=== PATIENT | male | born 1940 | race Caucasian/White ===

== ENCOUNTER 2024-01-28 22:30 | Observation (INO) | payer MEDICARE, SELFPAY ==
[2024-01-28] VITALS (7 sets, daily range): BP systolic 139–161; BP diastolic 67–93; PULSE 76–104; TEMP 39.3; O2SAT 93–95; BMI 31.7
--- NOTE | 2024-01-28 22:48 | ECG_ITS ---
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
--- NOTE | 2024-01-28 22:48 | XR_ITS ---
[place] [id number] Patient Name: NA ARIAS MRN: [id number] date: 1940 Sex: M Assigned Patient Location: ED.MAIN Current Patient Location: ER Accession/Order Number: [id number] Exam Date: 01/28/2024 23:16 Report Date: 01/29/2024 00:10 At the request of: ODALIS BANEGAS Procedure: XR chest 1V EXAMINATION: XR chest 1V, , 01/28/2024 11:16 PM EDT INDICATION: SOB HISTORY: Ordering Provider Reason for Exam: SOB Technologist Note: Additional: COMPARISON: None. TECHNIQUE: Chest x-ray: One view. FINDINGS: No pneumothorax, pleural effusion or focal airspace consolidation. Heart is normal in size. Bony thorax is unremarkable. XR/XR chest 1V IMPRESSION: No acute cardiopulmonary process. Electronically authenticated by: JOSEPH OCHOA Date: 01/29/2024 00:10
--- NOTE | 2024-01-28 22:51 | ED.GENADUL1 ---
HPI HPI - General Adult General Chief complaint: Upper Respiratory Infection Stated complaint: DIFF BREATHING, COUGH, POSS COVID Time Seen by Provider: 01/28/24 22:44 Source: patient Mode of arrival: Wheelchair Limitations: no limitations History of Present Illness HPI narrative: 83-year-old male presents for cough and shortness of breath. He was noted to have a fever at triage and his symptoms began yesterday. He complains of weakness particularly with ambulation as well. He was recently on a trip to [place] and [place] on the train. No vomiting or diarrhea. Related Data Allergies Allergy/AdvReac Type Severity Reaction Status Date / Time No Known Drug Allergies Allergy Verified 01/28/24 22:38 Opioid HPI Opioid Management Most Recent Opioid Data: No Data to Display Review of Systems ROS Narrative A ten point review of systems is negative except as noted above. PFSH PFSH Social History Little interest or pleasure in doing things: not at all Feeling down, depressed, or hopeless: not at all Exam Narrative Exam Narrative: Nurses note and vital signs reviewed and patient is not hypoxic. General: The patient appears in no acute respiratory distress but he appears moderately dyspneic. Skin: Warm, dry, no pallor noted. There is no rash noted. Head: Normocephalic, atraumatic Eye: Normal conjunctiva, no drainage Ears, Nose, Mouth, and Throat: oral mucosa is moist. Nares patent. Cardiovascular: Regular Rate and Rhythm Respiratory: He coughs when he takes in deep breaths. No rales or rhonchi are noted Back: non-tender GI: Soft and nontender Musculoskeletal: The patient has no evidence of calf tenderness, no pitting edema, symmetrical pulses noted bilaterally Neurological: Awake and alert Psychiatric: Cooperative Constitutional Vital Signs, click to edit/add: Last Vital Signs Temp 98.6 F 01/29/24 00:25 Pulse 82 01/29/24 00:30 Resp 18 01/29/24 00:30 BP 134/71 01/29/24 00:30 Pulse Ox 95 01/29/24 00:30 O2 Del Method Room Air 01/29/24 00:25 Course Vital Signs Vital signs: Vital Signs Temperature 102.8 F H 01/28/24 22:38 Pulse Rate 76 01/28/24 22:38 Respiratory Rate 22 H 01/28/24 22:38 Blood Pressure 161/67 H 01/28/24 22:38 Pulse Oximetry 93 L 01/28/24 22:38 Oxygen Delivery Method Room Air 01/28/24 22:38 Temperature 98.6 F 01/29/24 00:25 Pulse Rate 82 01/29/24 00:30 Respiratory Rate 18 01/29/24 00:30 Blood Pressure 134/71 01/29/24 00:30 Pulse Oximetry 95 01/29/24 00:30 Oxygen Delivery Method Room Air 01/29/24 00:25 Medical Decision Making MDM Narrative Medical decision making narrative: His workup including chest x-ray and COVID are negative. Cultures were obtained and he was given IV Rocephin and Zithromax. Temperatures come down appropriately with Tylenol. He has generalized weakness and he will be admitted. Findings are discussed with the patient and his . Differential Diagnosis Differential Diagnosis: COVID, upper respiratory infection, pneumonia Lab Data Lab results reviewed: Yes I reviewed the patient's lab results Labs: Lab Results 01/28/24 01/28/24 Range/Units 23:00 23:45 WBC 7.1 (4.0-11.0) 10^3/uL RBC 3.49 L (4.70-6.10) 10^6/uL Hgb 10.6 L (14.0-18.0) g/dL Hct 32.7 L (42.0-54.0) % MCV 93.7 (80.0-94.0) fL MCH 30.4 (25.9-34.0) pg MCHC 32.4 (29.9-35.2) g/dL RDW 12.5 (11.0-15.0) % Plt Count 179 (150-450) 10^3/uL MPV 10.6 (9.5-13.5) fL Seg Neuts % (Manual) 87.0 H (43.0-75.0) Lymphocytes % (Manual) 7.0 L (20.5-60.0) % Monocytes % (Manual) 2.0 (1.7-12.0) % Eosinophils % (Manual) 4.0 (0.9-7.0) % Basophils % (Manual) 0.0 L (0.2-2.0) % Neutrophils # (Manual) 6.17 (1.4-6.5) 10^3/uL Lymphocytes # (Manual) 0.49 L (1.20-3.80) 10^3/uL Monocytes # (Manual) 0.14 L (0.30-0.80) 10^3/uL Eosinophils # (Manual) 0.28 (0.00-0.70) 10^3/uL Basophils # (Manual) 0.00 (0.00-0.10) 10^3/uL Sodium 133 L (136-145) mmol/L Potassium 3.8 (3.5-5.1) mmol/L Chloride 101 (98-107) mmol/L Carbon Dioxide 27.9 (21.0-32.0) mmol/L Anion Gap 7.9 BUN 15.0 (7.0-18.0) mg/dL Creatinine 1.05 (0.70-1.30) mg/dL Est GFR ( Amer) >60 (>=60) Est GFR (Non-Af Amer) >60 (>=60) BUN/Creatinine Ratio 14.3 Glucose 125 H (74-106) mg/dL Lactate 1.2 (0.4-2.0) mmol/L Calcium 8.7 (8.5-10.1) mg/dL SARS-CoV-2 Ag (CV2AG) Negative (NEGATIVE) Imaging Data Chest x-ray: Radiologist's impression: ITS Impressions Chest X-Ray 01/28/24 22:48 IMPRESSION: No acute cardiopulmonary process. Electronically authenticated by: JOSEPH OCHOA Date: 01/29/2024 00:10 ECG Data Attestation: I personally reviewed and interpreted this ECG as follows: (EKG on my interpretation shows sinus rhythm with a rate of 81) Discharge Plan Discharge Chief Complaint: Upper Respiratory Infection Clinical Impression: Generalized weakness, Fever Patient Disposition: Admitted as Observation Time of Disposition Decision: 01:24 Condition: Fair
[2024-01-28 23:15] LABS: Hematocrit 32.7 % (42.0-54.0); Hemoglobin 10.6 g/dL (14.0-18.0); Mean Corpuscular HGB Conc 32.4 g/dL (29.9-35.2); Mean Corpuscular Hemoglobin 30.4 pg (25.9-34.0); Mean Corpuscular Volume 93.7 fL (80.0-94.0); Mean Platelet Volume 10.6 fL (9.5-13.5); Platelet Count 179 10^3/uL (150-450); Red Blood Count 3.49 10^6/uL (4.70-6.10); Red Cell Distribution Width 12.5 % (11.0-15.0); White Blood Count 7.1 10^3/uL (4.0-11.0)
[2024-01-28 23:24] LABS: Anion Gap 7.9; BUN Creatinine Ratio 14.3; Calcium 8.7 mg/dL (8.5-10.1); Carbon Dioxide 27.9 mmol/L (21.0-32.0); Chloride 101 mmol/L (98-107); Estimated GFR (African America >60 (>=60); Estimated GFR (Non-African Ame >60 (>=60); Glucose 125 mg/dL (74-106); Potassium 3.8 mmol/L (3.5-5.1); Sodium 133 mmol/L (136-145)
[2024-01-28 23:33] LABS: Lactate/Lactic Acid 1.2 mmol/L (0.4-2.0)
[2024-01-28] MEDS: ACETAMINOPHEN 325 MG TABLET 650 MG PO (23:37)
[2024-01-29] VITALS (29 sets, daily range): BP systolic 120–160; BP diastolic 64–75; PULSE 66–97; TEMP 36.8–38.5; O2SAT 85–97; BMI 35.0
[2024-01-29 00:06] LABS: Eosinophils Absolute Manual 0.28 10^3/uL (0.00-0.70); Lymphocytes Absolute Manual 0.49 10^3/uL (1.20-3.80); Monocytes Absolute Manual 0.14 10^3/uL (0.30-0.80); Segmented Neut Absolute Manual 6.17 10^3/uL (1.4-6.5)
[2024-01-29 00:08] LABS: Internal Control Within Normal Limits; SARS-CoV-2 Ag NEGATIVE (NEGATIVE)
[2024-01-29] MEDS: 0.9 % SODIUM CHLORIDE 1,000 ML 75 ML IV ×2 (02:23→15:26)
[2024-01-29] MEDS: CEFTRIAXONE 1,000 MG in 0.9 % SODIUM CHLORIDE 50 ML 100 MG IV (02:24)
[2024-01-29] MEDS: AZITHROMYCIN 500 MG in 0.9 % SODIUM CHLORIDE 250 ML 250 MG IV (02:24)
[2024-01-29 06:16] LABS: Basophils Percent Auto 0.4 % (0.2-2.0); Eosinophils Absolute Auto 0.4 10^3/uL (0.0-0.7); Hematocrit 32.1 % (42.0-54.0); Hemoglobin 10.3 g/dL (14.0-18.0); Immature Granulocytes Abs Auto 0.02 10^3/uL (0.00-0.03); Immature Granulocytes Pct Auto 0.3 % (0.0-0.5); Lymphocytes Absolute Auto 0.7 10^3/uL (1.2-3.8); Lymphocytes Percent Auto 9.4 % (20.5-60.0); Mean Corpuscular HGB Conc 32.1 g/dL (29.9-35.2); Mean Corpuscular Volume 93.6 fL (80.0-94.0); Mean Platelet Volume 10.9 fL (9.5-13.5); Monocytes Absolute Auto 0.3 10^3/uL (0.3-0.8); Monocytes Percent Auto 4.6 % (1.7-12.0); Neutrophils Absolute Auto 5.6 10^3/uL (1.4-6.5); Neutrophils Percent Auto 80.3 % (43.0-75.0); Platelet Count 169 10^3/uL (150-450); Red Blood Count 3.43 10^6/uL (4.70-6.10); Red Cell Distribution Width 12.4 % (11.0-15.0)
[2024-01-29 06:29] LABS: C Reactive Protein 1.91 mg/dL (<=0.50)
[2024-01-29 06:33] LABS: Alanine Aminotransferase 20 U/L (16-63); Albumin Globulin Ratio 0.9; Alkaline Phosphatase 74 U/L (46-116); Aspartate Amino Transferase 23 U/L (15-37); BUN Creatinine Ratio 14.6; Bilirubin Total 0.3 mg/dL (0.2-1.0); Calcium 8.6 mg/dL (8.5-10.1); Carbon Dioxide 28.6 mmol/L (21.0-32.0); Chloride 100 mmol/L (98-107); Estimated GFR (African America >60 (>=60); Estimated GFR (Non-African Ame >60 (>=60); Globulin 3.2 g/dL; Glucose 106 mg/dL (74-106); Magnesium 1.7 mg/dL (1.8-2.4); Potassium 3.6 mmol/L (3.5-5.1); Sodium 135 mmol/L (136-145); Total Protein 6.2 g/dL (6.4-8.2)
--- NOTE | 2024-01-29 07:32 | P.HP_ITS ---
HPI H&P: HPI History of Present Illness Chief complaint: general weakness fever Narrative: Mr. Hernandez is a 83 y.o white male with past medical history of prostate cancer (takes abiraterone), paroxysmal afib, GERD, HLD, Glaucoma, and arthritis. He recently went on a train trip to [place] and return about 24 hours ago when he developed significant weakness, fever (102), cough and shortness of breath. He presented to the ER last night for his symptoms. He also admits to nasal congestion and body aches. ER findings: Fever 102.8, WBC's 7.0, Hb 10.3, Mg 1.7, Lactate 1.2, K 3.6, Cr 0.96; Cxr showed no acute processes, 91% on room air, pulse 104, Covid negative; patient was admitted to the hospital service for further plan of care This morning I added influenza testing and patient is positive for Influenza A. He started Vomiting, and temp is 101.3. She is short of breath with conversing. Opioid HPI Opioid Management Most Recent Pain and Opioid Data: Last Pain Assessment 01/29/24 09:19 Last MAR Pain Assessment 01/29/24 08:56 Last ORT Total Score 3 01/29/24 01:58 Last ORT Risk Category Low Risk 01/29/24 01:58 Review of Systems ROS Narrative ROS: a complete review of systems were reviewed with patient and are positive as below or listed in History of Chief Complaint. General: fever, chills, night sweats Head: no headache, trauma, visual changes, but nausea and vomiting Skin: no reported rashes, itching or sores Eyes: no blurriness of vision Ears: no reported hearing loss, vertigo, earache, or tinnitus Throat: no sore throat, hoarseness, swelling of neck, or tongue pain Heart: no chest pain Lungs: shortness of breath, cough GI: no diarrhea but vomiting/nausea Urinary: no urinary urgency, frequency or pain Neuro: no numbness or tingling HEM: no bleeding issues or bruising ENDO: no thyroid problems Psych: no anxiety or depression [facility] Medical History (Updated 01/29/24 @ 10:01 by Lia Ruiz DO) HLD (hyperlipidemia) ?E78.5 - Hyperlipidemia, unspecified (ICD-10) GERD without esophagitis ?K21.9 - Gastro-esophageal reflux disease without esophagitis (ICD-10) History of kidney cancer ?Z85.528 - Personal history of other malignant neoplasm of kidney (ICD-10) Prostate cancer ?C61 - Malignant neoplasm of prostate (ICD-10) Irregular cardiac rhythm ?I49.9 - Cardiac arrhythmia, unspecified (ICD-10) HTN (hypertension) ?I10 - Essential (primary) hypertension (ICD-10) Surgical History History of back surgery ?Z98.890 - Other specified postprocedural states (ICD-10) History of knee replacement ?Z96.659 - Presence of unspecified artificial knee joint (ICD-10) Family History Other Family history of cancer Family history of hypertension Social History Within the past year, how often did you have a drink containing alcohol: monthly or less Within the past year, how many standard drinks containing alcohol did you have on a typical day: 1 or 2 Within the past year, how often did you have six or more drinks on one occasion: less than monthly Total score: 1 Score interpretation: A score less than 4 is consistent with normal alcohol consumption. Smoking status: Former smoker Non-prescribed substance use: denies use Previous occupational history: retired Are you now , , , , never or living with a partner: In a typical week, how many times do you talk on the telephone with family, friends, or neighbors: 3 or more times per week How often do you get together with friends or relatives: 3 or more times per week Little interest or pleasure in doing things: not at all Feeling down, depressed, or hopeless: not at all Feel stressed/tense/nervous/anxious/difficulty sleeping: not at all Do you think of yourself as: straight/heterosexual Gender Identity: male Meds Home Medications and Allergies Home Medications ?Medication ?Instructions ?Recorded ?Confirmed ?Type abiraterone 250 mg tablet 500 mg PO DAILY 01/29/24 01/29/24 History apixaban 5 mg tablet 5 mg PO BID 01/29/24 01/29/24 History carvedilol 6.25 mg tablet 6.25 mg PO BID 01/29/24 01/29/24 History latanoprost 0.005 % eye drops 1 drp ophthalmic (eye) QPM 01/29/24 01/29/24 History omeprazole 20 mg capsule,delayed 20 mg PO DAILY 01/29/24 01/29/24 History release pravastatin 40 mg tablet 40 mg PO DAILY 01/29/24 01/29/24 History prednisone 5 mg tablet 5 mg PO DAILY 01/29/24 01/29/24 History timolol maleate 0.5 % once daily 1 drp ophthalmic (eye) DAILY 01/29/24 01/29/24 History eye drops Allergies Allergy/AdvReac Type Severity Reaction Status Date / Time No Known Drug Allergies Allergy Verified 01/28/24 22:38 Exam Narrative Exam Narrative: General: Patient is alert, and oriented to person, is very hard of hearing, very sleepy and short of breath with talking Skin: no visible rashes, or ulcers, but pale Head: atraumatic, acephalic Eyes: PERRLA, no nystagmus present, conjunctiva clear, no scleral icterus Ears: diminished gross auditory acuity Heart: Normal rate and rhythm, no murmurs/rubs/gallops Lungs:audible wheezes, no crackles and diffuse wheezes all lung du Abdomen: Normal audible bowel sounds, no distension, No palpable masses, no organomegaly, no rebound/guarding/ or rigidity Musculoskeletal: no swelling bilateral lower extremities Neuro: CN II-X grossly intact Constitutional Vital Signs, click to edit/add: Last Vital Signs Temp 99.4 F 01/29/24 01:58 Pulse 97 H 01/29/24 06:22 Resp 20 01/29/24 01:58 BP 146/64 H 01/29/24 01:58 Pulse Ox 95 01/29/24 01:58 O2 Del Method Room Air 01/29/24 07:25 Results Labs Labs: Short CBC 01/28/24 01/29/24 Range/Units 23:00 05:47 WBC 7.1 7.0 (4.0-11.0) 10^3/uL Hgb 10.6 L 10.3 L (14.0-18.0) g/dL Hct 32.7 L 32.1 L (42.0-54.0) % Plt Count 179 169 (150-450) 10^3/uL BMP 01/28/24 01/29/24 23:00 05:47 Sodium 133 L 135 L Potassium 3.8 3.6 Chloride 101 100 Carbon Dioxide 27.9 28.6 BUN 15.0 14.0 Creatinine 1.05 0.96 Glucose 125 H 106 Calcium 8.7 8.6 Liver Function 01/29/24 Range/Units 05:47 Total Bilirubin 0.3 (0.2-1.0) mg/dL AST 23 (15-37) U/L ALT 20 (16-63) U/L Alkaline Phosphatase 74 (46-116) U/L Albumin 3.0 L (3.4-5.0) g/dL Assessment and Plan Assessment and Plan (1) Influenza A with pneumonia: Assessment and Plan: will treat with Tamiflu. Due to diffuse wheezing and exam, will place on scheduled duonebs. Patient on chronic prednisone so puts him at higher risk for secondary bacterial infection. Will place on Azithromycin. OPEP. and monitor oxygen stats closely. Add oxygen if needed. Treat flu symptoms, fever and n/v symptoms. Respiratory precautions. (2) Hypomagnesemia: Assessment and Plan: 1.7, replaced with 1G IV x 1 (3) Prostate cancer: Assessment and Plan: continue abiraterone (4) Irregular cardiac rhythm: Assessment and Plan: history of afib. HR controlled appears NSR, continue eliquis and coreg (5) HTN (hypertension): Assessment and Plan: continue coreg Qualifiers: Hypertension type: primary hypertension Qualified Code(s): I10 - Essential (primary) hypertension (6) GERD without esophagitis: Assessment and Plan: continue omeprazole (7) HLD (hyperlipidemia): Assessment and Plan: continue pravastatin Qualifiers: Hyperlipidemia type: unspecified Qualified Code(s): E78.5 - Hyperlipidemia, unspecified Plan Patient is a full code continue Eliquis Patient is in observation status and is not expected to cross 2 midnights, PT/OT evaluation.
[2024-01-29 07:47] LABS: Influenza Virus A Antigen Positive; Influenza Virus B Antigen Negative; Internal Control Within Normal Limits
[2024-01-29] MEDS: METHYLPREDNISOLONE SOD SUCC PF 40 MG/ML VIAL IVP ×3 (08:55→23:34)
[2024-01-29] MEDS: MAGNESIUM SULFATE/D5W 1 GM/100 ML PREMIX IV (08:55)
[2024-01-29] MEDS: CARVEDILOL 6.25 MG TABLET PO ×2 (08:56→20:17)
[2024-01-29] MEDS: OMEPRAZOLE 20 MG CAPSULE.DR PO (08:56)
[2024-01-29] MEDS: OSELTAMIVIR PHOSPHATE 75 MG CAPSULE PO ×2 (08:56→20:17)
[2024-01-29] MEDS: APIXABAN 5 MG TABLET PO ×2 (08:56→20:17)
[2024-01-29] MEDS: ACETAMINOPHEN 325 MG TABLET 650 MG PO (08:56)
[2024-01-29] MEDS: ONDANSETRON PF 4 MG/2 ML VIAL IV (10:00)
[2024-01-29] MEDS: IPRATROPIUM/ALBUTEROL SULFATE 3 ML AMPUL.NEB IH ×3 (10:26→23:30)
[2024-01-29] MEDS: BENZOCAINE/MENTHOL SORE THROAT LOZENGE 1 LOZENGE PO ×2 (16:23→22:06)
[2024-01-29] MEDS: LATANOPROST 0.005% 2.5 ML BOTTLE 1 DROP OP (20:17)
[2024-01-29] MEDS: ATORVASTATIN CALCIUM 10 MG TABLET PO (20:17)
[2024-01-29] MEDS: TIMOLOL MALEATE 0.5% OP SOL 100 DROPS/5 ML BOTTLE 1 DROP OP (20:18)
[2024-01-30] VITALS (9 sets, daily range): BP systolic 133–149; BP diastolic 63–74; PULSE 58–86; TEMP 36.6; O2SAT 93–96
[2024-01-30] MEDS: AZITHROMYCIN 500 MG in 0.9 % SODIUM CHLORIDE 250 ML 200 MG IV (00:35)
[2024-01-30] MEDS: IPRATROPIUM/ALBUTEROL SULFATE 3 ML AMPUL.NEB IH (05:22)
[2024-01-30] MEDS: OMEPRAZOLE 20 MG CAPSULE.DR PO (05:43)
[2024-01-30 05:53] LABS: Hematocrit 32.2 % (42.0-54.0); Hemoglobin 10.1 g/dL (14.0-18.0); Immature Granulocytes Abs Auto 0.06 10^3/uL (0.00-0.03); Lymphocytes Absolute Auto 0.8 10^3/uL (1.2-3.8); Lymphocytes Percent Auto 13.8 % (20.5-60.0); Mean Corpuscular HGB Conc 31.4 g/dL (29.9-35.2); Mean Corpuscular Hemoglobin 29.8 pg (25.9-34.0); Mean Platelet Volume 10.8 fL (9.5-13.5); Monocytes Absolute Auto 0.2 10^3/uL (0.3-0.8); Monocytes Percent Auto 3.1 % (1.7-12.0); Neutrophils Percent Auto 82.1 % (43.0-75.0); Platelet Count 170 10^3/uL (150-450); Red Blood Count 3.39 10^6/uL (4.70-6.10); Red Cell Distribution Width 12.1 % (11.0-15.0); White Blood Count 6.1 10^3/uL (4.0-11.0)
[2024-01-30 06:14] LABS: Alanine Aminotransferase 21 U/L (16-63); Albumin Globulin Ratio 0.8; Albumin Level 2.9 g/dL (3.4-5.0); Alkaline Phosphatase 70 U/L (46-116); Aspartate Amino Transferase 28 U/L (15-37); BUN Creatinine Ratio 15.7; Bilirubin Total 0.3 mg/dL (0.2-1.0); Calcium 8.8 mg/dL (8.5-10.1); Carbon Dioxide 26.1 mmol/L (21.0-32.0); Chloride 99 mmol/L (98-107); Estimated GFR (African America >60 (>=60); Estimated GFR (Non-African Ame >60 (>=60); Globulin 3.5 g/dL; Glucose 152 mg/dL (74-106); Potassium 4.1 mmol/L (3.5-5.1); Sodium 132 mmol/L (136-145); Total Protein 6.4 g/dL (6.4-8.2)
[2024-01-30 06:23] LABS: Magnesium 2.2 mg/dL (1.8-2.4)
[2024-01-30] MEDS: METHYLPREDNISOLONE SOD SUCC PF 40 MG/ML VIAL IVP (07:52)
--- NOTE | 2024-01-30 07:54 | PM.PN ---
Exam Constitutional Vital Signs, click to edit/add: Last Vital Signs Temp 97.9 F 01/30/24 04:00 Pulse 61 01/30/24 07:50 Resp 16 01/30/24 07:36 BP 149/63 H 01/30/24 07:27 Pulse Ox 94 L 01/30/24 07:27 O2 Del Method Room Air 01/30/24 07:27 O2 Flow Rate 1 01/30/24 05:22 Progress Note: Objective Labs Labs: Short CBC 01/30/24 Range/Units 05:30 WBC 6.1 (4.0-11.0) 10^3/uL Hgb 10.1 L (14.0-18.0) g/dL Hct 32.2 L (42.0-54.0) % Plt Count 170 (150-450) 10^3/uL BMP 01/30/24 05:30 Sodium 132 L Potassium 4.1 Chloride 99 Carbon Dioxide 26.1 BUN 14.0 Creatinine 0.89 Glucose 152 H Calcium 8.8 Liver Function 01/30/24 Range/Units 05:30 Total Bilirubin 0.3 (0.2-1.0) mg/dL AST 28 (15-37) U/L ALT 21 (16-63) U/L Alkaline Phosphatase 70 (46-116) U/L Albumin 2.9 L (3.4-5.0) g/dL Progress Note: A&P Assessment and Plan (1) Influenza A with pneumonia: (2) Hypomagnesemia: (3) Prostate cancer: (4) Irregular cardiac rhythm: (5) HTN (hypertension): Qualifiers: Hypertension type: primary hypertension Qualified Code(s): I10 - Essential (primary) hypertension (6) GERD without esophagitis: (7) HLD (hyperlipidemia): Qualifiers: Hyperlipidemia type: unspecified Qualified Code(s): E78.5 - Hyperlipidemia, unspecified
[2024-01-30] MEDS: ABIRATERONE 250 MG 500 EACH PO (08:16)
[2024-01-30] MEDS: CARVEDILOL 6.25 MG TABLET PO (08:17)
[2024-01-30] MEDS: APIXABAN 5 MG TABLET PO (08:17)
[2024-01-30] MEDS: TAMSULOSIN HCL 0.4 MG CAPSULE PO (08:17)
[2024-01-30] MEDS: OSELTAMIVIR PHOSPHATE 75 MG CAPSULE PO (08:17)
--- NOTE | 2024-01-30 09:13 | P.DS_ITS ---
DS: Providers Provider Date of admission: 01/29/24 01:22 Primary care physician: Non-Staff PhysicianMD Attending physician on admission: Lia Ruiz Consults: 01/29/24 07:22 Occupational Therapy Eval and Treat Routine Reason for consultation: weakness with ambulation Has provider been notified: No Physical Therapy Eval and Treat Routine Reason for consultation: weakness with ambulation Has provider been notified: No Discharging clinician: Lia Ruiz DS: Diagnosis Discharge Diagnosis (1) Influenza A with pneumonia: (2) Hypomagnesemia: (3) Prostate cancer: (4) Irregular cardiac rhythm: (5) HTN (hypertension): Qualifiers: Hypertension type: primary hypertension Qualified Code(s): I10 - Essential (primary) hypertension (6) GERD without esophagitis: (7) HLD (hyperlipidemia): Qualifiers: Hyperlipidemia type: unspecified Qualified Code(s): E78.5 - Hyperlipidemia, unspecified DS: Summary Hospital Course Hospital Course: Mr. Hernandez is a 83 y.o white male with past medical history of prostate cancer (takes abiraterone), paroxysmal afib, GERD, HLD, Glaucoma, and arthritis. He recently went on a train trip to [place] and return about 24 hours ago when he developed significant weakness, fever (102), cough and shortness of breath. He presented to the ER for his symptoms. He also admits to nasal congestion and body aches.ER findings: Fever 102.8, WBC's 7.0, Hb 10.3, Mg 1.7, Lactate 1.2, K 3.6, Cr 0.96; Cxr showed no acute processes, 91% on room air, pulse 104, Covid negative; Patient was positive for Influenza A. He started Vomiting, and temp is 101.3. He was short of breath with conversing. Patient did well over yesterday and this morning has been afebrile for 24 hours, no more nausea or vomiting or diarrhea. His shortness of breath has improved. Patient is saturating 94% on room even with ambulation. He did well with PT and OT, He is ready for discharge. All home medications will remain the same. He will be sent with cough medication to use as needed and 3 remaining days of Tamiflu 75mg BID. He will follow up with his pcp in 5-7 days. He may return to the ER with any worsening signs or symptoms. Status at Discharge Functional status at discharge: independent ambulation Overall status at discharge: patient is back to baseline Time Spent with Patient Time attestation: Total time spent providing and/or coordinating discharge services: Time spent: greater than 30 minutes Exam Narrative Exam Narrative: General: Patient is alert, and oriented to person, is very hard of hearing, but alert and in good spirits this morning Skin: no visible rashes, or ulcers Head: atraumatic, acephalic Eyes: PERRLA, no nystagmus present, conjunctiva clear, no scleral icterus Ears: diminished gross auditory acuity Heart: Normal rate and rhythm, no murmurs/rubs/gallops Lungs:no audible wheezes, no crackles and normal breath sounds all lung du Abdomen: Normal audible bowel sounds, no distension, No palpable masses, no organomegaly, no rebound/guarding/ or rigidity Musculoskeletal: no swelling bilateral lower extremities Neuro: CN II-X grossly intact Constitutional Vital Signs, click to edit/add: Last Vital Signs Temp 97.9 F 01/30/24 04:00 Pulse 61 01/30/24 07:50 Resp 16 01/30/24 07:36 BP 149/63 H 01/30/24 07:27 Pulse Ox 94 L 01/30/24 07:27 O2 Del Method Room Air 01/30/24 07:27 O2 Flow Rate 1 01/30/24 05:22 DS: Data Data Completed and Pending Labs on day of discharge: Labs from last 24 hours 01/30/24 01/29/24 05:30 07:32 WBC 6.1 RBC 3.39 L Hgb 10.1 L Hct 32.2 L MCV 95.0 H MCH 29.8 MCHC 31.4 RDW 12.1 Plt Count 170 MPV 10.8 Neut % (Auto) 82.1 H Lymph % (Auto) 13.8 L [place] % (Auto) 3.1 Eos % (Auto) 0.0 L Baso % (Auto) 0.0 L Neut # (Auto) 5.0 Lymph # (Auto) 0.8 L [place] # (Auto) 0.2 L Eos # (Auto) 0.0 Baso # (Auto) 0.0 Abs Immat Gran (auto) 0.06 H Imm/Tot Granulo (auto) 1.0 H Sodium 132 L Potassium 4.1 Chloride 99 Carbon Dioxide 26.1 Anion Gap 11.0 BUN 14.0 Creatinine 0.89 Est GFR ( Amer) >60 Est GFR (Non-Af Amer) >60 BUN/Creatinine Ratio 15.7 Glucose 152 H Calcium 8.8 Magnesium 2.2 Total Bilirubin 0.3 AST 28 ALT 21 Alkaline Phosphatase 70 Total Protein 6.4 Albumin 2.9 L Globulin 3.5 Albumin/Globulin Ratio 0.8 Influenza Type A Ag Positive A Influenza Type B Ag Negative Discharge Plan Discharge Disposition: Home, Self-Care Condition: Fair Discharge Medications: New dextromethorphan-guaifenesin 10-100 mg/5 mL Syrup 10 ml PO Q8H PRN (Reason: Cough) 3 Days Qty: 90 0RF oseltamivir 75 mg Capsule 75 mg PO BID 3 Days Qty: 6 0RF Continued timolol maleate 0.5 % drops, once daily 1 drp ophthalmic (eye) DAILY Patient Comments: left eye in am latanoprost 0.005 % drops 1 drp ophthalmic (eye) QPM prednisone 5 mg tablet 5 mg PO DAILY abiraterone 250 mg tablet 500 mg PO DAILY Patient Comments: am/pm Rx Instructions: must be taken on empty stomach, at least 1 hr before or 2 hrs after a meal/food carvedilol 6.25 mg tablet 6.25 mg PO BID Rx Instructions: must administer with a meal/food apixaban 5 mg tablet 5 mg PO BID pravastatin 40 mg tablet 40 mg PO DAILY omeprazole 20 mg capsule,delayed release(DR/EC) 20 mg PO DAILY tamsulosin [Flomax] 0.4 mg capsule 0.4 mg PO DAILY Activity: increase activity as tolerated Diet: advance to your usual diet Print Language: Kinyarwanda Patient Instructions: Influenza (DC), Weakness (DC) Forms: Portal Instructions Follow Up Appointments: nurse practitioner blanca thomas [place] to schedule following discharge [phone]
--- NOTE | 2024-01-30 09:21 | CM.NOTE ---
Rounds made with Dr. Ruiz, pt on RA and states he is feeling much better. Pt up for AM care to bathroom without decline in oxygen sat. Discussed with pt discharge to home. Pt will f/u with PCP in one week.
--- NOTE | 2024-01-30 10:23 | CM.NOTE ---
Medicare Outpatient Observation notice discussed with pt, pt verbalizes understanding and signs paper. Original given to pt and copy placed in pt's chart.
--- NOTE | 2024-01-31 13:16 | CM.DCFOLLOWU ---
Person spoke with: Lisandra How are you feeling? Much better How is your pain? No pain Did you understand your discharge instructions? Yes Do you have any questions about your discharge instructions? No Were you given any prescriptions at discharge? Yes Were you able to get your prescriptions filled? All but the cough syrup Do you understand how to take your medications as ordered? Yes Do you have any questions about your follow up appointment and do you plan to keep your follow up appointment? [facility] Is there anything else that you would like to discuss? No Questions/Comments/Concerns/Other:
== END 2024-01-30 11:53 | disposition home or self-care (01) ==
LOC: ER 01-29 01:24 → MS 01-29 01:55
PROVIDERS: Registered Nurse; Admitting Provider Family Medicine; Emergency Provider Emergency Medicine; Visit Provider Family Medicine
DX: J10.00 Influenza due to other identified influenza virus with unspecified type of pneumonia (principal); E83.42 Hypomagnesemia; C61 Malignant neoplasm of prostate; I49.9 Cardiac arrhythmia, unspecified; I48.0 Paroxysmal atrial fibrillation; I10 Essential (primary) hypertension; K21.9 Gastro-esophageal reflux disease without esophagitis; E78.5 Hyperlipidemia, unspecified; R50.9 Fever, unspecified; R11.10 Vomiting, unspecified; H40.9 Unspecified glaucoma; Z20.822 Contact with and (suspected) exposure to COVID-19; Z87.891 Personal history of nicotine dependence; Z79.899 Other long term (current) drug therapy; Z79.01 Long term (current) use of anticoagulants
CPT/HCPCS: 36415; 71045; 80048; 80053; 81001; 83605; 83735; 85007; 85025; 85027; 86140; 87040; 87070; 87804; 87811; 93005; 94640; 94667; 94668; 94761; 96361; 96365; 96367; 96368; 96375; 96376; 97165; 97535; 99285; G0378; J0456; J0696; J2405; J2919; J3475

== ENCOUNTER 2025-04-26 11:08 | Emergency (ER) | payer OTHER, SELFPAY ==
[2025-04-26 11:12] VITALS: BP 166/64; PULSE 68; TEMP 36.6; O2SAT 97; BMI 30.1
--- NOTE | 2025-04-26 11:24 | CT_ITS ---
The [address] [address] Patient Name: NA ARIAS MRN: [id number] date: 1940 Sex: M Assigned Patient Location: ER Current Patient Location: .MAIN Accession/Order Number: [id number] Exam Date: 04/26/2025 11:32 Report Date: 04/26/2025 12:04 At the request of: ODALIS BANEGAS MD Procedure: CT lumbar spine wo con CT LUMBAR SPINE WITHOUT CONTRAST WITH 3-D RECONSTRUCTIONS COMPARISON: None CLINICAL DATA: Patient fell if a ladder 2 days ago and hit left hip on a bed rail. Bruising and pain in the left flank region. Spiral axial unenhanced images were obtained through the lumbar spine. Sagittal, coronal and 3-D volume rendered reconstructions were reviewed. This CT exam was performed using one or more following dose reduction techniques: Automated exposure control, adjustment of the mA and/or kV according to patient size, or use of iterative reconstruction technique. There is slight retrolisthesis of L1 on L2 and L4 and L5. No acute compression fractures are identified. There are mildly displaced fractures involving the left first through fourth transverse processes. The sacrum and imaged bony pelvis are intact. There is multilevel disc space narrowing with relative sparing at L3-4. There is endplate spurring and Schmorl's nodes. Facet hypertrophy is also seen, greatest distally. There is some associated central and foraminal stenosis, greatest at the L2-3 and L3-4 levels. No paraspinal soft tissue abnormalities are visualized. There is atherosclerotic plaque at the aorta and its branches. A partially imaged left renal cyst is seen. CT/CT lumbar spine wo con IMPRESSION: DEGENERATIVE CHANGES. MULTIPLE LEFT TRANSVERSE PROCESS FRACTURES. NO ACUTE COMPRESSION DEFORMITIES. Impression dictated by: Elba Tellez M.D. 04/26/2025 12:04 PM [facility]ictation [facility] Electron[facility] authenticated by: [id number] Y Date: 04/26/2025 12:04
--- NOTE | 2025-04-26 11:24 | ED.GENADUL1 ---
HPI HPI - General Adult General Chief complaint: Fall Stated complaint: FALL L LOWER EXTREMITY PAIN Time Seen by Provider: 04/26/25 11:18 Source: patient Mode of arrival: walk-in Limitations: no limitations History of Present Illness HPI narrative: 85-year-old male presents for left lower back pain. 2 days ago he fell and hit his left lower back on the bed. He did not hit his head. He is on Eliquis, no hematuria. He has had pain since then so he came in to get checked today. No shortness of breath or rib pain. Related Data Home Medications ?Medication ?Instructions ?Recorded ?Confirmed abiraterone 250 mg tablet 500 mg PO DAILY 01/29/24 01/29/24 apixaban 5 mg tablet 5 mg PO BID 01/29/24 01/29/24 carvedilol 6.25 mg tablet 6.25 mg PO BID 01/29/24 01/29/24 latanoprost 0.005 % eye drops 1 drp ophthalmic (eye) QPM 01/29/24 01/29/24 omeprazole 20 mg capsule,delayed 20 mg PO DAILY 01/29/24 01/29/24 release pravastatin 40 mg tablet 40 mg PO DAILY 01/29/24 01/29/24 prednisone 5 mg tablet 5 mg PO DAILY 01/29/24 01/29/24 tamsulosin 0.4 mg capsule (Flomax) 0.4 mg PO DAILY 01/29/24 01/29/24 timolol maleate 0.5 % once daily 1 drp ophthalmic (eye) DAILY 01/29/24 01/29/24 eye drops Previous Rx's ?Medication ?Instructions ?Recorded dextromethorphan-guaifenesin 10 10 ml PO Q8H PRN Cough 3 days #90 01/30/24 mg-100 mg/5 mL oral syrup mL oseltamivir 75 mg capsule 75 mg PO BID 3 days #6 caps 01/30/24 acetaminophen 300 mg-codeine 30 mg 1 tab PO Q6H PRN pain 5 days #20 04/26/25 tablet tabs Allergies Allergy/AdvReac Type Severity Reaction Status Date / Time No Known Drug Allergies Allergy Verified 04/26/25 11:12 Opioid HPI Opioid Management Most Recent Opioid Data: Last ORT Total Score 3 01/29/24, 01:58 Last ORT Risk Category Low Risk 01/29/24, 01:58 Review of Systems ROS Narrative A ten point review of systems is negative except as noted above. [facility] Medical History (Updated 04/26/25 @ 12:46 by Waldemar Mcginnis MD) HLD (hyperlipidemia) ?E78.5 - Hyperlipidemia, unspecified (ICD-10) GERD without esophagitis ?K21.9 - Gastro-esophageal reflux disease without esophagitis (ICD-10) History of kidney cancer ?Z85.528 - Personal history of other malignant neoplasm of kidney (ICD-10) Prostate cancer ?C61 - Malignant neoplasm of prostate (ICD-10) Irregular cardiac rhythm ?I49.9 - Cardiac arrhythmia, unspecified (ICD-10) HTN (hypertension) ?I10 - Essential (primary) hypertension (ICD-10) Surgical History History of back surgery ?Z98.890 - Other specified postprocedural states (ICD-10) History of knee replacement ?Z96.659 - Presence of unspecified artificial knee joint (ICD-10) Family History Other Family history of cancer Family history of hypertension Social History Within the past year, how often did you have a drink containing alcohol: monthly or less Within the past year, how many standard drinks containing alcohol did you have on a typical day: 1 or 2 Within the past year, how often did you have six or more drinks on one occasion: less than monthly Total score: 1 Score interpretation: A score less than 4 is consistent with normal alcohol consumption. Smoking status: Former smoker Non-prescribed substance use: denies use Previous occupational history: retired Are you now , , , , never or living with a partner: In a typical week, how many times do you talk on the telephone with family, friends, or neighbors: 3 or more times per week How often do you get together with friends or relatives: 3 or more times per week Little interest or pleasure in doing things: not at all Feeling down, depressed, or hopeless: not at all Feel stressed/tense/nervous/anxious/difficulty sleeping: not at all Do you think of yourself as: straight/heterosexual Gender Identity: male Exam Narrative Exam Narrative: Nurses note and vital signs reviewed General:The patient appears well and in no apparent distress. Patient is resting comfortably on cart, sitting upright. Skin:Warm, dry, no pallor noted.There is no rash noted. Head:Normocephalic, atraumatic Eye: Normal conjunctiva, no drainage Ears, Nose, Mouth, and Throat: oral mucosa is moist. Nares patent. Cardiovascular: Not tachycardic Respiratory:Patient is in no distress, no accessory muscle use, lungs are clear to auscultation, no wheezing, rales or rhonchi Back: He has oval-shaped bruise on his left lower back with tenderness. No break in the skin. No tenderness on the left lower rib region. GI:Normal bowel sounds, no tenderness to palpation, no masses appreciated.No rebound, guarding, or rigidity noted. Musculoskeletal: All joints have full range of motion Neurological:A&O, normal speech Psychiatric:Cooperative Constitutional Vital Signs, click to edit/add: Last Vital Signs Temp 97.8 F 04/26/25 11:12 Pulse 87 04/26/25 12:54 Resp 16 04/26/25 12:54 BP 174/101 H 04/26/25 12:54 Pulse Ox 97 04/26/25 12:54 O2 Del Method Room Air 04/26/25 12:54 Course Vital Signs Vital signs: Vital Signs Temperature 97.8 F 04/26/25 11:12 Pulse Rate 68 04/26/25 11:12 Respiratory Rate 18 04/26/25 11:12 Blood Pressure 166/64 H 04/26/25 11:12 Pulse Oximetry 97 04/26/25 11:12 Oxygen Delivery Method Room Air 04/26/25 11:12 Temperature 97.8 F 04/26/25 11:12 Pulse Rate 87 04/26/25 12:54 Respiratory Rate 16 04/26/25 12:54 Blood Pressure 174/101 H 04/26/25 12:54 Pulse Oximetry 97 04/26/25 12:54 Oxygen Delivery Method Room Air 04/26/25 12:54 Medical Decision Making MDM Narrative Medical decision making narrative: Four lumbar transverse process fractures are identified, L1-L4. Case discussed with Dr. Huff who recommends discharge home with pain medication and outpatient follow-up. The patient was advised of the importance of follow-up. No other injuries are found. Treatment diagnosis and follow-up were discussed with the patient. No evidence of hematoma. Differential Diagnosis Differential Diagnosis: Contusions, fractures, hematoma Imaging Data Lumbar CT: Radiologist's impression: ITS Impressions Lumbar Spine CT 04/26/25 11:24 IMPRESSION: DEGENERATIVE CHANGES. MULTIPLE LEFT TRANSVERSE PROCESS FRACTURES. NO ACUTE COMPRESSION DEFORMITIES. Impression dictated by: Elba Tellez M.D. 04/26/2025 12:04 PM Dictation Location: [facility] Electronically authenticated by: [id number] Y Date: 04/26/2025 12:04 Discharge Plan Discharge Chief Complaint: Fall Clinical Impression: Closed fracture of transverse process of lumbar vertebra Patient Disposition: Home, Self-Care Time of Disposition Decision: 12:46 Condition: Good Mode of Transportation: Private Vehicle Prescriptions / Home Meds: New acetaminophen-codeine 300-30 mg tablet 1 tab PO Q6H PRN (Reason: pain) 5 Days Qty: 20 0RF No Action timolol maleate 0.5 % drops, once daily 1 drp ophthalmic (eye) DAILY Patient Comments: left eye in am latanoprost 0.005 % drops 1 drp ophthalmic (eye) QPM prednisone 5 mg tablet 5 mg PO DAILY abiraterone 250 mg tablet 500 mg PO DAILY Patient Comments: am/pm Rx Instructions: must be taken on empty stomach, at least 1 hr before or 2 hrs after a meal/food carvedilol 6.25 mg tablet 6.25 mg PO BID Rx Instructions: must administer with a meal/food apixaban 5 mg tablet 5 mg PO BID pravastatin 40 mg tablet 40 mg PO DAILY omeprazole 20 mg capsule,delayed release(DR/EC) 20 mg PO DAILY tamsulosin [Flomax] 0.4 mg capsule 0.4 mg PO DAILY dextromethorphan-guaifenesin 10-100 mg/5 mL Syrup 10 ml PO Q8H PRN (Reason: Cough) 3 Days Qty: 90 0RF oseltamivir 75 mg Capsule 75 mg PO BID 3 Days Qty: 6 0RF Print Language: Iranian Instructions: Transverse Process Fracture (ED) Additional Instructions: See Ilena in Dr Huff's office for follow-up. Referrals: YVES HUFF [Physician, Neurosurgery] - 1 week Physician,Non-Staff, [Primary Care Provider] - 1 week Discharge Date/Time: 04/26/25 12:57
[2025-04-26 12:54] VITALS: BP 174/101; PULSE 87; O2SAT 97
== END 2025-04-26 12:57 | disposition home or self-care (01) ==
PROVIDERS: Emergency Provider Emergency Medicine
DX: S32.018A Other fracture of first lumbar vertebra, initial encounter for closed fracture (principal); S32.028A Other fracture of second lumbar vertebra, initial encounter for closed fracture; S32.038A Other fracture of third lumbar vertebra, initial encounter for closed fracture; S32.048A Other fracture of fourth lumbar vertebra, initial encounter for closed fracture; W01.190A Fall on same level from slipping, tripping and stumbling with subsequent striking against furniture, initial encounter; Z79.01 Long term (current) use of anticoagulants
CPT/HCPCS: 72131; 76376; 99284